=== PATIENT | male | born 1955 | race Caucasian/White ===

== ENCOUNTER → 2017-06-03 | Outpatient (CLI) | payer BC ==
[~2017-06-03] MED LIST: ATOR20TA PO; EMPA10TA PO; LEVO175T2 PO; METF500T4 PO; TRAM50TA2 PO
[2017-06-03 12:57] LABS: BASOPHILS # (AUTO) 0.06 x10^3/uL (0-0.1); BASOPHILS % (AUTO) 1 % (0-1); EOSINOPHILS # (AUTO) 0.11 x10^3/uL (0-0.4); EOSINOPHILS % (AUTO) 1 % (1-7); LYMPHOCYTES # (AUTO) 2.27 x10^3/uL (1-3.4); LYMPHOCYTES % (AUTO) 21 % (22-44); MD NO; MEAN CORPUSCULAR HEMOGLOBIN 28.1 pg (27.5-34.5); MEAN CORPUSCULAR HGB CONC 34.2 g/dL (33.2-36.2); MEAN CORPUSCULAR VOLUME 82.2 fL (81-97); MEAN PLATELET VOLUME 8.6 fL (7.4-10.4); MONOCYTES # (AUTO) 0.64 x10^3/uL (0.2-0.8); MONOCYTES % (AUTO) 6 % (2-9); NEUTROPHILS # (AUTO) 7.91 x10^3/uL (1.8-6.8); NEUTROPHILS % (AUTO) 72 % (42-75); PLATELET COUNT 208 x10^3/uL (130-400); RED BLOOD COUNT 5.55 x10^6/uL (4.38-5.82); RED CELL DISTRIBUTION WIDTH 16.1 % (9.4-14.8)
[2017-06-03 13:06] LABS: INTERNATIONAL NORMALIZED RATIO 0.94 (0.93-1.1); PROTHROMBIN TIME 9.7 Seconds (9.6-11.5)
[2017-06-03 13:08] LABS: ALBUMIN 4.1 g/dL (3.4-5.0); ANION GAP 9 mmol/L (5-15); CALCIUM 9.4 mg/dL (8.5-10.1); CHLORIDE 106 mmol/L (98-107)
[2017-06-03 13:12] LABS: ALANINE AMINOTRANSFERASE 25 U/L (12-78); ALKALINE PHOSPHATASE 64 U/L (45-117); BILIRUBIN,TOTAL 0.8 mg/dL (0.2-1.0); CREATININE 1.29 mg/dL (0.7-1.3); TOTAL PROTEIN 8.1 g/dL (6.4-8.2)
== END | disposition home or self-care (01) ==
LOC: STAR 12:00
PROVIDERS: ATTEND Neurological Surgery
DX: Z01.818 Encounter for other preprocedural examination (principal); E11.9 Type 2 diabetes mellitus without complications; M48.061 Spinal stenosis, lumbar region without neurogenic claudication; R94.31 Abnormal electrocardiogram [ECG] [EKG]
CPT/HCPCS: 36415; 71046; 80053; 85025; 85610; 85730; 93005

== ENCOUNTER 2017-06-15 05:39 | Inpatient (IN) | payer BC, OTHER ==
[~2017-06-15] VITALS: Ht 177.8 cm; Wt 112.9 kg
[2017-06-15] MEDS ORDERED: LANS30CA60 PO (06:23)
[2017-06-15] MEDS ORDERED: LACTATED RINGERS 1,000 ML IV SCH (06:23)
[2017-06-15 06:24] VITALS: BP 156/97
[2017-06-15] MEDS ORDERED: THROMBIN 5,000 UNIT VIAL TP ONE (06:26)
[2017-06-15] MEDS ORDERED: BACITRACIN 50,000 UNIT ONE (06:26)
[2017-06-15] MEDS ORDERED: HEPARIN 1,000 UNITS/ML, 30ML ONE (07:02)
[2017-06-15] MEDS ORDERED: LIDOCAINE GEL 2%, 5ML ONE (07:03)
[2017-06-15] MEDS ORDERED: MIDAZOLAM 1 MG/ML, 2ML ONE (07:03)
[2017-06-15] MEDS ORDERED: FENTANYL PF 250 MCG/5ML ONE (07:03)
[2017-06-15] MEDS ORDERED: KETAMINE 10 MG/ML, 20ML ONE (07:05)
[2017-06-15] MEDS ORDERED: PROPOFOL 50 ML ONE ×3 (07:06→09:17)
[2017-06-15] MEDS ORDERED: LIDOCAINE-MPF 2% ,5ML ONE ×2 (07:07→09:30)
[2017-06-15] MEDS ORDERED: ACETAMINOPHEN 500 MG TABLET ONE (07:20)
[2017-06-15] MEDS ORDERED: OxyconTIN ER 10 MG TAB.ER ONE (07:21)
[2017-06-15] MEDS ORDERED: ACETAMINOPHEN 500 MG TABLET PO ONE (07:30)
[2017-06-15] MEDS ORDERED: GABAPENTIN 300 MG CAPSULE PO ONE (07:30)
[2017-06-15] MEDS ORDERED: OxyconTIN ER 10 MG TAB.ER PO ONE (07:30)
[2017-06-15] MEDS ORDERED: THROMBIN 20,000 UNIT VIAL TP ONE (08:16)
[2017-06-15] MEDS ORDERED: GLYCOPYRROLATE 0.2MG/1ML, 5ML ONE (08:23)
[2017-06-15] MEDS ORDERED: PROPOFOL 10 MG/ML, 20ML ONE (08:23)
[2017-06-15] MEDS ORDERED: DEXAMETHASONE 4 MG/ML, 1ML ONE (08:23)
[2017-06-15] MEDS ORDERED: ONDANSETRON 2MG/ML, 2ML ONE (08:23)
[2017-06-15] MEDS ORDERED: SUCCINYLCHOLINE 20 MG/ML, 10ML ONE (08:23)
[2017-06-15] MEDS ORDERED: NEOSTIGMINE 1 MG/ML, 10ML ONE (08:23)
[2017-06-15] MEDS ORDERED: ROCURONIUM 10 MG/ML,10ML ONE (08:23)
[2017-06-15] MEDS ORDERED: CEFAZOLIN 1,000 MG ONE ×2 (08:23→09:30)
[2017-06-15] MEDS ORDERED: PROMETHAZINE 25 MG/ML, 1ML IV PRN (08:30)
[2017-06-15] MEDS ORDERED: MIDAZOLAM 1 MG/ML, 2ML IV PRN (08:30)
[2017-06-15] MEDS ORDERED: OXYcodone 5 MG/5 ML ORAL.SOL UDC PO PRN (08:30)
[2017-06-15] MEDS ORDERED: ONDANSETRON 2MG/ML, 2ML IVPush PRN (08:30)
[2017-06-15] MEDS ORDERED: ALBUTEROL/IPRATROPIUM 2.5MG/0.5MG, 3 ML NPPB PRN (08:30)
[2017-06-15] MEDS ORDERED: LABETALOL 5MG/ML, 20ML IV PRN ×2 (08:30→14:30)
[2017-06-15] MEDS ORDERED: METOCLOPRAMIDE 5 MG/ML, 2ML IV PRN (08:30)
[2017-06-15] MEDS ORDERED: hydrALAzine 20 MG/ML, 1ML IV PRN (08:30)
[2017-06-15] MEDS ORDERED: DIAZEPAM 5 MG/ML, 2ML IVPush PRN (08:30)
[2017-06-15] MEDS ORDERED: MEPERIDINE/PF 25MG/0.5ML IVPush PRN (08:30)
[2017-06-15] MEDS ORDERED: FENTANYL PF 100 MCG/2ML IV PRN (08:30)
[2017-06-15] MEDS ORDERED: BUPIVACAINE/PF 0.25% ONE (09:53)
[2017-06-15] MEDS ORDERED: morphine SULFATE 10 MG/ML, 1ML ONE ×2 (10:51→11:01)
[2017-06-15] MEDS: morphine SULFATE 10 MG/ML, 1ML IV PRN ×3 (10:54→11:33)
[2017-06-15] MEDS ORDERED: LORazepam 2 MG/ML, 1ML ONE (11:01)
[2017-06-15] MEDS: LORazepam 2 MG/ML, 1ML IVPush PRN ×2 (11:09→11:39)
[2017-06-15 12:48] VITALS: BP 152/80
[2017-06-15] MEDS ORDERED: MAGNESIUM HYDROXIDE 8%, 30ML UDC PO PRN (14:30)
[2017-06-15] MEDS ORDERED: ONDANSETRON 2MG/ML, 2ML IV PRN (14:30)
[2017-06-15] MEDS ORDERED: morphine SULFATE 10 MG/ML, 1ML IV PRN (14:30)
[2017-06-15] MEDS ORDERED: DIPHENHYDRAMINE 25 MG CAPSULE PO PRN (14:30)
[2017-06-15] MEDS ORDERED: PROMETHAZINE 25 MG/ML, 1ML IM PRN (14:30)
[2017-06-15] MEDS ORDERED: OXYcodone/APAP 5/325MG TABLET PO PRN (14:30)
[2017-06-15] MEDS ORDERED: BISACODYL 10 MG SUPP PR PRN (14:30)
[2017-06-15] MEDS ORDERED: NS + 20MEQ KCL 1,000 ML IV SCH (15:00)
[2017-06-15] MEDS: CEFAZOLIN PMX 1GM/50ML 50 ML IVPB SCH ×2 (15:41→23:23)
[2017-06-15] MEDS: metFORMIN 500 MG TABLET PO SCH ×2 (15:48→20:58)
[2017-06-15] MEDS: INSULIN REGULAR 100 UNITS/ML, 3ML VIAL SQ-INSULIN SCH ×2 (17:10→21:55)
[2017-06-15] MEDS: OXYcodone/APAP 10/325MG TABLET PO PRN ×2 (17:16→20:58)
[2017-06-15 20:15] VITALS: BP 106/65
[2017-06-15] MEDS: ATORVASTATIN 20 MG TABLET PO SCH (20:58)
[2017-06-16 01:13] VITALS: BP 109/63
[2017-06-16] MEDS: OXYcodone/APAP 10/325MG TABLET PO PRN ×6 (01:16→21:01)
[2017-06-16 05:36] LABS: BASOPHILS # (AUTO) 0.03 x10^3/uL (0-0.1); BASOPHILS % (AUTO) 0 % (0-1); EOSINOPHILS # (AUTO) 0.04 x10^3/uL (0-0.4); EOSINOPHILS % (AUTO) 0 % (1-7); LYMPHOCYTES # (AUTO) 1.61 x10^3/uL (1-3.4); LYMPHOCYTES % (AUTO) 11 % (22-44); MD NO; MEAN CORPUSCULAR HEMOGLOBIN 27.8 pg (27.5-34.5); MEAN CORPUSCULAR HGB CONC 33.6 g/dL (33.2-36.2); MEAN CORPUSCULAR VOLUME 82.8 fL (81-97); MEAN PLATELET VOLUME 8.6 fL (7.4-10.4); MONOCYTES # (AUTO) 1.04 x10^3/uL (0.2-0.8); MONOCYTES % (AUTO) 7 % (2-9); NEUTROPHILS # (AUTO) 11.38 x10^3/uL (1.8-6.8); NEUTROPHILS % (AUTO) 81 % (42-75); PLATELET COUNT 188 x10^3/uL (130-400); RED CELL DISTRIBUTION WIDTH 15.9 % (9.4-14.8)
[2017-06-16 05:42] LABS: CHLORIDE 106 mmol/L (98-107)
[2017-06-16 06:09] LABS: ALBUMIN 3.1 g/dL (3.4-5.0); ANION GAP 10 mmol/L (5-15); CREATININE 1.21 mg/dL (0.7-1.3)
[2017-06-16] MEDS: metFORMIN 500 MG TABLET PO SCH ×4 (06:10→21:01)
[2017-06-16] MEDS: LEVOTHYROXINE 175 MCG TABLET PO SCH (06:10)
[2017-06-16] MEDS: INSULIN REGULAR 100 UNITS/ML, 3ML VIAL SQ-INSULIN SCH ×4 (07:00→21:00)
[2017-06-16 07:53] VITALS: BP 97/58
[2017-06-16] MEDS: ENOXAPARIN 40 MG/0.4 ML SQ SCH (09:01)
[2017-06-16] MEDS: EMPAGLIFLOZIN 10 MG HOMEMEDPO SCH (09:01)
[2017-06-16] MEDS: SENNA/DOCUSATE TABLET PO SCH (09:01)
[2017-06-16] MEDS: PANTOPROZOLE 40MG TABLET PO SCH (09:01)
[2017-06-16 12:46] VITALS: BP 124/75
[2017-06-16 19:36] VITALS: BP 134/72
[2017-06-16] MEDS: METHOCARBAMOL 750 MG TABLET PO PRN (20:06)
[2017-06-16] MEDS: ATORVASTATIN 20 MG TABLET PO SCH (21:01)
[2017-06-16 22:14] LABS: BASOPHILS # (AUTO) 0.04 x10^3/uL (0-0.1); BASOPHILS % (AUTO) 0 % (0-1); EOSINOPHILS # (AUTO) 0.04 x10^3/uL (0-0.4); EOSINOPHILS % (AUTO) 0 % (1-7); LYMPHOCYTES # (AUTO) 1.58 x10^3/uL (1-3.4); LYMPHOCYTES % (AUTO) 11 % (22-44); MD NO; MEAN CORPUSCULAR HEMOGLOBIN 27.5 pg (27.5-34.5); MEAN CORPUSCULAR HGB CONC 33.5 g/dL (33.2-36.2); MEAN CORPUSCULAR VOLUME 82.2 fL (81-97); MEAN PLATELET VOLUME 8.2 fL (7.4-10.4); MONOCYTES # (AUTO) 1.31 x10^3/uL (0.2-0.8); MONOCYTES % (AUTO) 9 % (2-9); NEUTROPHILS # (AUTO) 11.11 x10^3/uL (1.8-6.8); NEUTROPHILS % (AUTO) 79 % (42-75); PLATELET COUNT 183 x10^3/uL (130-400); RED BLOOD COUNT 4.65 x10^6/uL (4.38-5.82); RED CELL DISTRIBUTION WIDTH 15.8 % (9.4-14.8)
[2017-06-16 22:23] LABS: ANION GAP 8 mmol/L (5-15); CALCIUM 8.9 mg/dL (8.5-10.1); CHLORIDE 104 mmol/L (98-107); CREATININE 1.23 mg/dL (0.7-1.3)
[2017-06-16 22:24] VITALS: BP 120/76
[2017-06-16 23:23] LABS: MICROSCOPIC NOT IND
[2017-06-17 00:47] VITALS: BP 144/84
[2017-06-17] MEDS: OXYcodone/APAP 10/325MG TABLET PO PRN ×3 (01:37→11:35)
[2017-06-17] MEDS: METHOCARBAMOL 750 MG TABLET PO PRN (04:07)
[2017-06-17] MEDS ORDERED: LEVOTHYROXINE 100 MCG TABLET ONE (06:20)
[2017-06-17] MEDS ORDERED: LEVOTHYROXINE 75 MCG TABLET ONE (06:20)
[2017-06-17] MEDS: LEVOTHYROXINE 175 MCG TABLET PO SCH (06:29)
[2017-06-17] MEDS: metFORMIN 500 MG TABLET PO SCH ×2 (06:32→11:07)
[2017-06-17] MEDS: INSULIN REGULAR 100 UNITS/ML, 3ML VIAL SQ-INSULIN SCH ×2 (06:33→10:59)
[2017-06-17 08:59] VITALS: BP 148/86
[2017-06-17] MEDS: SENNA/DOCUSATE TABLET PO SCH (09:08)
[2017-06-17] MEDS: PANTOPROZOLE 40MG TABLET PO SCH (09:08)
[2017-06-17] MEDS: EMPAGLIFLOZIN 10 MG HOMEMEDPO SCH (09:09)
[2017-06-17] MEDS: ENOXAPARIN 40 MG/0.4 ML SQ SCH (09:16)
[2017-06-17] MEDS ORDERED: OXYC-307 PO (09:36)
[2017-06-17] MEDS ORDERED: SENN1TAB7 PO (09:37)
[2017-06-17] MEDS ORDERED: METH750T87 PO (09:37)
== END 2017-06-17 11:52 | disposition home or self-care (01) | DRG 460 ==
LOC: ORIP 05:39 → 4NOR 12:26 → DCLOUNGE 06-17 11:50
PROVIDERS: ADMIT Neurological Surgery; ATTEND Neurological Surgery
PROC: 0SG30A0 Fusion of Lumbosacral Joint with Interbody Fusion Device, Anterior Approach, Anterior Column, Open Approach (ICD-10-PCS; 2017-06-15)
PROC: 0SB20ZZ Excision of Lumbar Vertebral Disc, Open Approach (ICD-10-PCS; 2017-06-15)
PROC: 0SB40ZZ Excision of Lumbosacral Disc, Open Approach (ICD-10-PCS; 2017-06-15)
PROC: 0SG00A0 Fusion of Lumbar Vertebral Joint with Interbody Fusion Device, Anterior Approach, Anterior Column, Open Approach (ICD-10-PCS; principal; 2017-06-15 07:30)
DX: M51.17 Intervertebral disc disorders with radiculopathy, lumbosacral region (principal); G89.29 Other chronic pain; M16.11 Unilateral primary osteoarthritis, right hip; M48.07 Spinal stenosis, lumbosacral region; M43.17 Spondylolisthesis, lumbosacral region; M51.16 Intervertebral disc disorders with radiculopathy, lumbar region; M48.061 Spinal stenosis, lumbar region without neurogenic claudication
CPT/HCPCS: 36415; 71045; 72100; 74018; 80048; 81003; 82040; 82962; 85025; 86850; 86900; C1713; C1776; J0690; J1100; J1644; J1650; J1815; J2250; J2405; J2704; J2710; J3010; J3480; J3490; C1762; J0330; J2060; J2270; J7120